=== PATIENT | male | born 1950 | race Caucasian/White ===

== ENCOUNTER 2016-11-06 05:29 | Inpatient (IN) | payer MEDICARE, OTHER ==
[~2016-11-06 05:29] MED LIST: ASPIR 8181 M1 PO; CENTRUM COMPLE1 EAC1 PO; CIPRO500 M2 PO; CIPRO500 MG PO; FISH OIL 1,2001 CAP PO; GLUCOPHAGE850 M1 PO; HYDROCHLOROTHIA25 M1 PO; LANTUS100 UNITS/ SC; LISINOPRIL40 M1 PO; NOVOLOG100 UNITS/ SC; ZOCOR80 M1 PO
[2016-11-06 06:09] LABS: URINE BILIRUBIN NEGATIVE (NEG); URINE BLOOD LARGE (NEG); URINE GLUCOSE (UA) NEGATIVE (NEG); URINE KETONE SMALL (NEG); URINE LEUKOCYTE ESTERASE POSITIVE (NEG); URINE NITRITE NEGATIVE (NEG); URINE PH 6.5 (5.0-8.0); URINE PROTEIN LARGE (NEG); URINE SPECIFIC GRAVITY 1.015 (1.003-1.030)
[2016-11-06 06:16] LABS: URINE APPEARANCE BLOODY; URINE COLOR RED
[2016-11-06 06:18] LABS: URINE MUCUS 2+; URINE RBC FULL FIELD /[HPF] (0-5)
[2016-11-06 06:29] LABS: ANION GAP 15 mmol/L (0-20); BLOOD UREA NITROGEN 32 mg/dl (6-24); CALCIUM 9.6 mg/dl (8.5-10.5); CARBON DIOXIDE-VENOUS 22 mmol/L (22-32); CHLORIDE 105 mmol/l (96-110); CREATININE 1.75 mg/dl (0.60-1.30); GLUCOSE 180 mg/dL (70-110); POTASSIUM 4.2 mmol/L (3.7-5.1); SODIUM 138 mmol/L (135-145); eGFR VALUE FOR BLACK 46 mL/Min
[2016-11-06 15:05] LABS: BASO % 0.1 % (0-2); HGB-HEMOGLOBIN 11.8 gm/dl (13.5-17.0); IMMATURE GRANULOCYTES ABSOLUTE 0.06 tho/cmm (0-0.03); IMMATURE GRANULOCYTES PERCENT 0.4 % (0-0.3); LYMPH % 3.9 % (20-45); LYMPH ABSOLUTE COUNT 0.6 tho/cmm (0.8-4.5); MCH (MEAN CORPUSCULAR HGB) 30.4 pg (28.0-32.0); MCHC MEAN CORPUSCULAR HGB CONC 33.7 % (32.0-36.0); MCV (MEAN CELL VOLUME) 90.2 fl (82.0-96.0); MEAN PLATELET VOLUME 9.4 cmc (9.4-12.4); MONO % 4.8 % (0-12); MONOCYTE ABSOLUTE COUNT 0.8 tho/cmm (0.0-1.2); NEUTROPHIL ABSOLUTE COUNT 15.1 tho/cmm (1.6-8.0); NEUTROPHIL-AUTOMATED 15.1 tho/cmm (1.6-8.0); NEUTROPHILS % 90.8 % (40-80); PLATELET COUNT 225 tho/cmm (150-450); RED BLOOD COUNT 3.88 mil/cmm (4.40-5.70); RED CELL DISTRIBUTION WIDTH 15.6 % (12.4-16.4); WHITE BLOOD COUNT 16.6 tho/cmm (4.0-10.0)
[2016-11-06 15:17] LABS: ANION GAP 20 mmol/L (0-20); BLOOD UREA NITROGEN 34 mg/dl (6-24); CALCIUM 8.7 mg/dl (8.5-10.5); CARBON DIOXIDE-VENOUS 18 mmol/L (22-32); CHLORIDE 105 mmol/l (96-110); POTASSIUM 4.7 mmol/L (3.7-5.1); SODIUM 138 mmol/L (135-145); eGFR VALUE FOR BLACK 29 mL/Min
[2016-11-06 15:22] LABS: CREATININE 2.54 mg/dl (0.60-1.30); GLUCOSE 294 mg/dL (70-110)
[2016-11-07 05:23] LABS: BASO % 0.1 % (0-2); HGB-HEMOGLOBIN 10.6 gm/dl (13.5-17.0); IMMATURE GRANULOCYTES ABSOLUTE 0.04 tho/cmm (0-0.03); IMMATURE GRANULOCYTES PERCENT 0.3 % (0-0.3); LYMPH ABSOLUTE COUNT 0.7 tho/cmm (0.8-4.5); MCH (MEAN CORPUSCULAR HGB) 29.9 pg (28.0-32.0); MCHC MEAN CORPUSCULAR HGB CONC 33.1 % (32.0-36.0); MCV (MEAN CELL VOLUME) 90.1 fl (82.0-96.0); MEAN PLATELET VOLUME 9.3 cmc (9.4-12.4); MONOCYTE ABSOLUTE COUNT 1.1 tho/cmm (0.0-1.2); NEUTROPHIL ABSOLUTE COUNT 12.3 tho/cmm (1.6-8.0); NEUTROPHIL-AUTOMATED 12.3 tho/cmm (1.6-8.0); NEUTROPHILS % 86.6 % (40-80); PLATELET COUNT 211 tho/cmm (150-450); RED BLOOD COUNT 3.55 mil/cmm (4.40-5.70); RED CELL DISTRIBUTION WIDTH 15.3 % (12.4-16.4); WHITE BLOOD COUNT 14.2 tho/cmm (4.0-10.0)
[2016-11-07 05:38] LABS: ANION GAP 16 mmol/L (0-20); BLOOD UREA NITROGEN 37 mg/dl (6-24); CALCIUM 8.4 mg/dl (8.5-10.5); CARBON DIOXIDE-VENOUS 22 mmol/L (22-32); CHLORIDE 103 mmol/l (96-110); CREATININE 2.01 mg/dl (0.60-1.30); GLUCOSE 254 mg/dL (70-110); POTASSIUM 4.8 mmol/L (3.7-5.1); SODIUM 136 mmol/L (135-145); eGFR VALUE FOR BLACK 39 mL/Min
--- NOTE | 2016-11-07 14:24 | NUR ---
1248-VIRTUAL NURSE NOTE-ROUNDING DONE ON PATIENT. STATES HAS NO PAIN AND IS PASSING GAS. DENIES ANY CONCERNS AT THIS TIME Juan Alberto HILL RN
[2016-11-08 04:32] LABS: BASO % 0.1 % (0-2); HCT-HEMATOCRIT 30.6 % (36.0-53.5); IMMATURE GRANULOCYTES ABSOLUTE 0.04 tho/cmm (0-0.03); IMMATURE GRANULOCYTES PERCENT 0.3 % (0-0.3); LYMPH % 8.7 % (20-45); LYMPH ABSOLUTE COUNT 1.1 tho/cmm (0.8-4.5); MCH (MEAN CORPUSCULAR HGB) 29.9 pg (28.0-32.0); MCHC MEAN CORPUSCULAR HGB CONC 32.7 % (32.0-36.0); MCV (MEAN CELL VOLUME) 91.3 fl (82.0-96.0); MEAN PLATELET VOLUME 9.3 cmc (9.4-12.4); MONO % 9.1 % (0-12); MONOCYTE ABSOLUTE COUNT 1.2 tho/cmm (0.0-1.2); NEUTROPHIL ABSOLUTE COUNT 10.4 tho/cmm (1.6-8.0); NEUTROPHIL-AUTOMATED 10.4 tho/cmm (1.6-8.0); NEUTROPHILS % 81.8 % (40-80); PLATELET COUNT 186 tho/cmm (150-450); RED BLOOD COUNT 3.35 mil/cmm (4.40-5.70); RED CELL DISTRIBUTION WIDTH 15.5 % (12.4-16.4); WHITE BLOOD COUNT 12.8 tho/cmm (4.0-10.0)
[2016-11-08 04:49] LABS: ALB/GLOB RATIO 0.8 (0.8-2.0); ALBUMIN 2.6 g/dl (3.5-5.0); ALKALINE PHOSPHATASE 51 U/L (33-138); ALT/SGPT 19 U/L (12-78); ANION GAP 13 mmol/L (0-20); AST/SGOT 23 U/L (10-40); BILIRUBIN,TOTAL 0.2 mg/dl (0.0-1.5); BLOOD UREA NITROGEN 29 mg/dl (6-24); CALCIUM 8.1 mg/dl (8.5-10.5); CARBON DIOXIDE-VENOUS 22 mmol/L (22-32); CHLORIDE 108 mmol/l (96-110); CREATININE 1.52 mg/dl (0.60-1.30); GLUCOSE 157 mg/dL (70-110); MAGNESIUM 2.7 mg/dl (1.8-2.6); PHOSPHOROUS 2.6 mg/dl (2.5-4.9); POTASSIUM 4.6 mmol/L (3.7-5.1); SODIUM 138 mmol/L (135-145); eGFR VALUE FOR BLACK 55 mL/Min
--- NOTE | 2016-11-08 21:32 | NUR ---
TONE ROUNDING-TRIED ROUNDING ON PATIENT AT 2054 AND HIM AND VISITOR WERE BUSY WATCHING TV SHOW AND SAID TO COME BACK LATER. I JUST TRIED AGAIN AND HE IS SLEEPING. CHART REVIEWED.
[2016-11-09 08:12] LABS: BODY FLUID TYPE JP DRAIN
[2016-11-09] MEDS ORDERED: NORCO 5-325 TA1 EACH PO (10:32)
[2016-11-09] MEDS ORDERED: COLACE100 M1 PO (10:32)
[2016-11-09] MEDS ORDERED: CEFADROXIL500 M1 PO (10:33)
[2016-11-09] MEDS ORDERED: TYLENOL EXTRA500 M1 PO (10:34)
[2016-11-09] MEDS ORDERED: STOP THE FOLLOWING: (10:35)
== END 2016-11-09 11:52 | DRG 657 ==
LOC: SHSC 05:29 → PACU 12:31 → 5WD 14:45
PROVIDERS: Anesthesiology; ADMIT Urology
DX: C65.2 Malignant neoplasm of left renal pelvis (principal); N17.9 Acute kidney failure, unspecified; E11.22 Type 2 diabetes mellitus with diabetic chronic kidney disease; C66.2 Malignant neoplasm of left ureter; E11.40 Type 2 diabetes mellitus with diabetic neuropathy, unspecified; Z79.82 Long term (current) use of aspirin; Z79.4 Long term (current) use of insulin; Z85.46 Personal history of malignant neoplasm of prostate; I25.10 Atherosclerotic heart disease of native coronary artery without angina pectoris; I12.9 Hypertensive chronic kidney disease with stage 1 through stage 4 chronic kidney disease, or unspecified chronic kidney disease; Z87.891 Personal history of nicotine dependence; K66.0 Peritoneal adhesions (postprocedural) (postinfection); E11.65 Type 2 diabetes mellitus with hyperglycemia; R09.02 Hypoxemia; N18.3 Chronic kidney disease, stage 3 (moderate); M16.12 Unilateral primary osteoarthritis, left hip; Z86.008 Personal history of in-situ neoplasm of other site; M47.896 Other spondylosis, lumbar region; Z79.84 Long term (current) use of oral hypoglycemic drugs
CPT/HCPCS: J0131; J0690; J1644; J1650; J1815; J2250; J2270; J3010; J7030